=== PATIENT | male | born 1950 | race Caucasian/White ===

== ENCOUNTER 2016-12-31 08:36 | Day surgery (SDC) | payer MEDICARE, BC ==
[~2016-12-31] VITALS: Ht 171.6 cm; Wt 67.0 kg
[~2016-12-31 08:36] MED LIST: ALBUTEROL SULF0.5 M1; ERY-TAB250 M1 PO; MICROZIDE12.5 MG PO; N ACETYL; NEXIUM 40MG40 MG PO; NORVASC 5MG5 MG/TAB PO; PREDNISONE10 MG PO; PREDNISONE20 MG PO; PROAIR HFA0.09 MG/AC IH; [UNRECOGNIZED DRUG - OTHER]
[2016-12-31 09:27] LABS: HEMOGLOBIN 12.6 g/dl (13.5-18.0); MEAN CELL VOLUME 97 fl (80.0-100.0); MEAN CORPUSCULAR HEMOGLOBIN 33 pg (27.0-31.0); MEAN CORPUSCULAR HGB CONC 34 g/dl (33.0-37.0); MEAN PLATELET VOLUME 11.1 fl (7.4-10.4); PLATELET COUNT 159 K/mm3 (130-400); RED BLOOD COUNT 3.79 M/mm3 (4.20-5.60); REDCELL DISTRIBUTION WIDTH-CV 12.4 % (11.5-14.5); WHITE BLOOD COUNT 6.1 K/mm3 (4.8-10.8)
[2016-12-31 09:28] LABS: INR 1.1 (0.8-3.0); PROTHROMBIN TIME 11.9 SECONDS (9.7-12.8)
[2016-12-31 09:29] LABS: HEMATOCRIT 36.6 % (42.0-52.0)
[2016-12-31 09:34] LABS: CALCIUM 9.6 mg/dL (8.4-10.2); CREATININE, serum 1.28 mg/dL (0.66-1.25)
[2016-12-31] MEDS ORDERED: CALCIUM CITRAT950 MG PO (09:53)
[2016-12-31] MEDS ORDERED: ASPIRIN 81M81 MG/TA2 PO (09:54)
[2016-12-31] MEDS ORDERED: VITAMIN D32000 I1 PO (09:55)
[2016-12-31] MEDS ORDERED: PREDNISONE 5MG5 MG PO (09:56)
[2016-12-31] MEDS ORDERED: MULTI VITAMINS1 TAB PO (09:59)
[2016-12-31 10:00] VITALS: BP 121/68; PULSE 51; TEMP 97.7
[2016-12-31] MEDS ORDERED: ZOVIRAX 200MG200 MG PO (10:01)
[2016-12-31] MEDS ORDERED: AMOXICILLIN 50500 MG PO (10:02)
[2016-12-31] MEDS ORDERED: BACTRIM DS 8001 TAB PO (10:03)
[2016-12-31] MEDS ORDERED: ZITHROMAX 250M250 MG PO (10:04)
[2016-12-31] MEDS ORDERED: PRIL40 PO (10:05)
[2016-12-31] MEDS ORDERED: LOPRESSOR 225 MG/TAB PO (10:06)
[2016-12-31] MEDS ORDERED: LIPITOR 40MG TA40 MG PO ×2 (10:07→10:08)
[2016-12-31] MEDS ORDERED: DESYREL 50MG50 MG PO (10:07)
[2016-12-31] MEDS ORDERED: NORCO 325 MG-51 TAB PO (10:08)
[2016-12-31] MEDS ORDERED: CELLCEPT 5500 MG/TAB PO (10:09)
[2016-12-31] MEDS ORDERED: PRINIVIL10 MG PO (10:10)
[2016-12-31] MEDS ORDERED: PROGRAF 1MG1 MG PO ×3 (10:10→12:56)
[2016-12-31] MEDS ORDERED: ZOLOFT 100MG100 MG PO (10:12)
[2016-12-31 11:09] VITALS: BP 117/70; PULSE 56
[2016-12-31 12:25] VITALS: BP 109/64; PULSE 54
[2016-12-31 12:40] VITALS: BP 121/71; PULSE 57
[2016-12-31 12:55] VITALS: BP 115/73; PULSE 56; TEMP 97
== END 2016-12-31 13:19 | disposition home or self-care (01) ==
LOC: COL.CAR 08:36
PROVIDERS: Internal Medicine Cardiovascular Disease
DX: I25.10 Atherosclerotic heart disease of native coronary artery without angina pectoris (principal); I25.82 Chronic total occlusion of coronary artery; Z94.2 Lung transplant status; I10 Essential (primary) hypertension; E78.5 Hyperlipidemia, unspecified; Z79.899 Other long term (current) drug therapy; Z79.82 Long term (current) use of aspirin; Z79.52 Long term (current) use of systemic steroids; Z87.891 Personal history of nicotine dependence; I35.1 Nonrheumatic aortic (valve) insufficiency
CPT/HCPCS: C1769; C1887; C1894; J1644; J2250; J3010; Q9967

== ENCOUNTER 2019-08-09 13:43 | Day surgery (SDC) | payer MEDICARE, BC ==
[~2019-08-09] VITALS: Ht 165.1 cm; Wt 59.0 kg
[~2019-08-09 13:43] MED LIST changes: +AMOXICILLIN 50500 MG PO; +ASPIRIN 81M81 MG/TA2 PO; +BACTRIM DS 8001 TAB PO; +CALCIUM CITRAT950 MG PO; +CELLCEPT 5500 MG/TAB PO; +DESYREL 50MG50 MG PO; +LIPITOR 40MG TA40 MG PO; +LOPRESSOR 225 MG/TAB PO; +MULTI VITAMINS1 TAB PO; +NORCO 325 MG-51 TAB PO; +PREDNISONE 5MG5 MG PO; +PRIL40 PO; +PRINIVIL10 MG PO; +PROGRAF 1MG1 MG PO; +VITAMIN D32000 I1 PO; +ZITHROMAX 250M250 MG PO; +ZOLOFT 100MG100 MG PO; +ZOVIRAX 200MG200 MG PO
[2019-08-09] MEDS ORDERED: PLAVIX 75MG TAB75 MG PO (14:08)
[2019-08-09 14:34] VITALS: BP 122/73; PULSE 59; TEMP 98.3
--- NOTE | 2019-08-09 14:38 | NUR ---
TO RM AT 1400- CALL LIGHT IN REACH AT BEDSIDE.
--- NOTE | 2019-08-09 15:11 | NUR ---
Initial visit; Patient and his thanked Field Service Consultant for offering prayer and encouragement prior to his Procedure.
[2019-08-09 15:35] VITALS: BP 122/68; PULSE 62; TEMP 97.9
--- NOTE | 2019-08-09 15:35 | NUR ---
TO BAY 4 PER CART FROM ENDOSCOPY. ALERT ORIENTED X3, TALKING TO STAFF AND HIS . RECEIVED COFFEE AND MUFFIN.
[2019-08-09 15:50] VITALS: BP 129/74; PULSE 65
--- NOTE | 2019-08-09 15:50 | NUR ---
ATE 100% AND TOLERATED WELL. RECEIVED 2ND CUP COFFEE.
--- NOTE | 2019-08-09 16:00 | NUR ---
DR EUGENE INTO TALK WITH PATIENT AND HIS .
--- NOTE | 2019-08-09 16:10 | NUR ---
RECEIVED DISCHARGE INSTRUCTIONS AND VERBALIZED UNDERSTANDING. DISCONTINUED IV AND INT- CATHETER INTACT.
--- NOTE | 2019-08-09 16:25 | NUR ---
DISCHARGED PER WC BY NURSING STAFF TO PRIVATE CAR IN CARE OF -BERTA.
== END 2019-08-09 16:30 | disposition home or self-care (01) ==
LOC: SDCO 13:43
DX: R19.7 Diarrhea, unspecified (principal); K21.9 Gastro-esophageal reflux disease without esophagitis; I10 Essential (primary) hypertension; J84.10 Pulmonary fibrosis, unspecified; I25.10 Atherosclerotic heart disease of native coronary artery without angina pectoris; J84.9 Interstitial pulmonary disease, unspecified; Z79.82 Long term (current) use of aspirin; Z79.02 Long term (current) use of antithrombotics/antiplatelets; Z87.891 Personal history of nicotine dependence; Z88.8 Allergy status to other drugs, medicaments and biological substances
CPT/HCPCS: J2704; J7030

== ENCOUNTER 2024-02-24 07:33 | Day surgery (SDC) | payer MEDICARE, BC ==
[~2024-02-24] VITALS: Ht 165.2 cm; Wt 66.0 kg
[2024-02-24] VITALS (9 sets, daily range): BP systolic 110–140; BP diastolic 66–80; PULSE 49–62; TEMP 98
[~2024-02-24 07:33] MED LIST changes: +PLAVIX 75MG TAB75 MG PO
[2024-02-24] MEDS ORDERED: 1/2 NS 1,000 ML IV SCH (08:00)
[2024-02-24] MEDS ORDERED: Nitroglycerin 2% Topical Oint 1 GM UD TD SCH (08:45)
[2024-02-24 08:48] LABS: CALCIUM 9.6 mg/dL (8.4-10.2); CREATININE, serum 1.31 mg/dL (0.72-1.25)
[2024-02-24 08:51] LABS: INR 1.1 (0.8-3.0); PROTHROMBIN TIME 11.6 SECONDS (9.7-12.8)
[2024-02-24 08:52] LABS: HEMOGLOBIN 10.9 g/dl (13.5-18.0); MEAN CELL VOLUME 105 fl (80.0-100.0); MEAN CORPUSCULAR HEMOGLOBIN 39 pg (27-31); MEAN CORPUSCULAR HGB CONC 37 g/dl (33.0-37.0); MEAN PLATELET VOLUME 10.1 fl (7.4-10.4); PLATELET COUNT 183 K/mm3 (130-400); RED BLOOD COUNT 2.77 M/mm3 (4.20-5.60); REDCELL DISTRIBUTION WIDTH-CV 14.5 % (11.5-14.5)
[2024-02-24 09:01] LABS: HEMATOCRIT 29.2 % (42.0-52.0)
[2024-02-24] MEDS ORDERED: PROGRAF 1MG1 MG PO ×2 (09:37)
[2024-02-24] MEDS ORDERED: NORVASC 5MG5 MG/TAB PO (09:38)
[2024-02-24] MEDS ORDERED: ZOVIRAX 200MG200 MG PO (09:38)
[2024-02-24] MEDS ORDERED: LEXAPRO20 MG PO (09:39)
[2024-02-24] MEDS ORDERED: IMURAN 50MG TAB50 MG PO (09:39)
[2024-02-24] MEDS ORDERED: COZAAR 50MG50 MG/TAB PO (09:40)
[2024-02-24] MEDS ORDERED: CALCIUM CITRAT200 M2 (09:42)
[2024-02-24] MEDS ORDERED: NITROSTAT0.4 MG/TAB SL (09:42)
--- NOTE | 2024-02-24 11:57 | NUR ---
See merge for all medication, assessment,intervention, and vital sign times.
[2024-02-24] MEDS ORDERED: NS 1,000 ML IV SCH (12:05)
--- NOTE | 2024-02-24 12:06 | NUR ---
Dr. Clark advised during time out of patient's sodium, gives orders to switch 0.45% NaCl for 0.9% NaCl. Dr. Clark advises good to proceed with procedure.
[2024-02-24] MEDS ORDERED: niCARdipine (Cath Lab) 100 MCG/ML 10 ML VIAL IA SCH (12:07)
[2024-02-24] MEDS ORDERED: Heparin 1,000 UNITS/ML 10 ML Multi-Dose VIAL IV SCH (12:09)
[2024-02-24] MEDS ORDERED: Iohexol 350 - 100 ML VIAL INCOR ONE (12:31)
[2024-02-24] MEDS ORDERED: Midazolam 2 MG/2 ML VIAL IV SCH (12:31)
[2024-02-24] MEDS ORDERED: fentaNYL 50 MCG/ML 2 ML VIAL IV SCH (12:32)
--- NOTE | 2024-02-24 12:45 | NUR ---
pt to eu 12 from research lab assistant via bed, awake and alert, with pt. Pt has no c/o, call light in reach. sips on coffee, lunch tray ordered. hob elevated, right wrist with radial band on with no swelling or signs of bleeding
--- NOTE | 2024-02-24 13:30 | NUR ---
pt sits up in bed, eats lunch, at bedside, no c/o, radial band site remains the same
--- NOTE | 2024-02-24 14:35 | NUR ---
RELEASED AIR FROM BAND OVER 20 MIN, 2CC INCREMENTS WITH NO SWELLING OR BLEEDING. BANDAID OVER SITE WITH COBAN FOR SUPPORT. PT UP TO B/R TO VOID, TOLERATED WELL. REVIEWED DISCHARGE INST. WITH PT ON CARE OF SITE, ACTIVITY LEVEL, PRECAUTIONS, MEDICATION LIST AND FOLLOWUP WITH VERBAL UNDERSTANDING.
--- NOTE | 2024-02-24 15:20 | NUR ---
IV D'CD INTACT, PT UP IN ROOM DRESSED. DISCHARGED VIA W/C TO CAR WITH
== END 2024-02-24 15:20 | disposition home or self-care (01) ==
LOC: COL.CAR 07:33
PROVIDERS: Internal Medicine Cardiovascular Disease
DX: I25.119 Atherosclerotic heart disease of native coronary artery with unspecified angina pectoris (principal); I10 Essential (primary) hypertension; Z87.891 Personal history of nicotine dependence
CPT/HCPCS: C1769; J1644; J2250; J2404; J3010; J7030; Q9967